=== PATIENT | male | born 1955 | race American Indian/Alaskan Native ===

== ENCOUNTER 2016-04-12 14:46 | Emergency (ER) | payer BC ==
[2016-04-12 15:04] VITALS: BP 173/97
--- NOTE | 2016-04-12 15:49 | Emergency Department Report ---
Chief Complaint: Chest Pain Stated Complaint: CHEST PAIN/ LEFT SIDE/LIP/NUMB Time Seen by Provider: 04/12/16 15:43 - HPI History of Present Illness: 21-year-old male comes in for complaints of chest pain that started this a.m. while watching television patient denies any radiation nausea vomiting or shortness of breath he does report that his left hand numbness patient denies any dizziness. Patient has a past medical history of hypertension hypercholesterolemia. She recently saw a waxing machine operator before the holidays, recently had a stress test done - Exam Vital Signs: Vital Signs 04/12/16 15:01 Temperature 98.9 F Pulse Rate 77 Respiratory 16 Rate Blood Pressure 173/97 O2 Sat by Pulse 100 Oximetry Physical Exam: Patient alert and oriented 3 cardiovascular S1-S2 regular rate and rhythm respiratory lateral is no chest wall tenderness. MSE screening note: Focused history and physical exam performed. Due to findings the following was ordered: Evaluated but this E provider. Chest pain protocol was ordered. ED Disposition for MSE Condition: Stable
[2016-04-12 16:25] LABS: Basophils % (Auto) 0.9 % (0.0-1.8); Eosinophils % (Auto) 2.4 % (0.0-4.3); Hematocrit 37.9 % (35.5-45.6); Hemoglobin 12.5 gm/dl (11.8-15.2); Mean Corpuscular HGB Conc 33 % (32-34); Mean Corpuscular Hemoglobin 31 pg (28-32); Mean Corpuscular Volume 94 fl (84-94); Platelet Count 272 K/mm3 (140-440); Red Blood Count 4.05 M/mm3 (3.65-5.03); Red Cell Distribution Width 16.6 % (13.2-15.2); White Blood Count 4.7 K/mm3 (4.5-11.0)
[2016-04-12 19:12] LABS: Anion Gap 20 mmol/L; BUN/Creatinine Ratio 11.11; Blood Urea Nitrogen 10 mg/dL (9-20); Calcium 8.8 mg/dL (8.4-10.2); Carbon Dioxide 25 mmol/L (22-30); Chloride 98.2 mmol/L (98-107); Glucose 98 mg/dL (75-100); Potassium 3.6 mmol/L (3.6-5.0); Sodium 140 mmol/L (137-145)
--- NOTE | 2016-04-16 05:48 | ED Elopement Review ---
ED Pt Elopement review - Results review Lab results: Laboratory Tests 04/12/16 04/12/16 16:02 16:02 WBC 4.7 RBC 4.05 Hgb 12.5 Hct 37.9 MCV 94 MCH 31 MCHC 33 RDW 16.6 H Plt Count 272 Lymph % (Auto) 25.1 [place] % (Auto) 8.9 H Eos % (Auto) 2.4 Baso % (Auto) 0.9 Lymph # 1.2 [place] # 0.4 Eos # 0.1 Baso # 0.0 Seg Neutrophils % 62.7 Seg Neutrophils # 3.0 Sodium 140 Potassium 3.6 Chloride 98.2 Carbon Dioxide 25 Anion Gap 20 BUN 10 Creatinine 0.9 Estimated GFR > 60 BUN/Creatinine Ratio 11.11 Glucose 98 Calcium 8.8 Troponin T < 0.010 - Call Back decision Pt Call Back Decision: No action required
== END 2016-04-12 23:40 | disposition left against medical advice (07) ==
LOC: ED 14:46
DX: R07.9 Chest pain, unspecified (principal); R20.2 Paresthesia of skin; Z53.21 Procedure and treatment not carried out due to patient leaving prior to being seen by health care provider
CPT/HCPCS: 36415; 80048; 84484; 85025; 93005; 93010